=== PATIENT | male | born 1960 | race Caucasian/White ===

== ENCOUNTER 2017-03-27 16:45 | Emergency (ER) | payer OTHER ==
[~2017-03-27] VITALS: Ht 182.9 cm; Wt 95.2 kg
[~2017-03-27 16:45] MED LIST: COUMADIN5 MG PO; PRAVASTATIN SOD40 MG PO; TRAMADOL HCL50 M1 PO; ZETIA PO
== END 2017-03-27 18:19 | disposition home or self-care (01) ==
LOC: SED 16:45
DX: S16.1XXA Strain of muscle, fascia and tendon at neck level, initial encounter (principal); R03.0 Elevated blood-pressure reading, without diagnosis of hypertension; E78.5 Hyperlipidemia, unspecified; Z88.0 Allergy status to penicillin; Z79.01 Long term (current) use of anticoagulants; Z79.899 Other long term (current) drug therapy
CPT/HCPCS: 96372; 99283; J1885; J2360